=== PATIENT | male | born 1960 | race Two or more races ===

== ENCOUNTER 2022-11-04 10:07 | Emergency (ER) | payer BC, OTHER ==
[~2022-11-04] VITALS: Ht 162.6 cm; Wt 95.5 kg
[2022-11-04 11:17] LABS: Basophils # (auto) 0 10 ^3/uL (0-0.2); Basophils % (auto) 0.7 % (0.0-2.0); Eosinophils # (auto) 0.2 10 ^3/uL (0-0.8); Eosinophils % (auto) 2.8 % (0.0-7.0); Hematocrit 42.5 % (41.0-53.0); Hemoglobin 14.1 g/dL (13.5-17.5); Lymphocytes # (auto) 0.8 10 ^3/uL (0.4-5.4); Lymphocytes % (auto) 13.9 % (10.0-50.0); Mean Corpuscular Hemoglobin 28.8 pg (28.0-32.0); Mean Corpuscular Hgb Conc. 33.2 g/dL (32.0-36.0); Mean Corpuscular Volume 86.5 fL (80.0-100.0); Monocytes # (auto) 0.5 10 ^3/uL (0-1.3); Monocytes % (auto) 7.7 % (0.0-12.0); Neutrophils # (auto) 4.6 10 ^3/uL (1.6-8.6); Neutrophils % (auto) 74.9 % (37.0-80.0); Red Blood Cells 4.91 10^6/uL (4.5-5.90); Red Cell Distribution Width 14.4 % (11.8-14.3); White Blood Cell 6.1 10^3/uL (4.4-10.8)
[2022-11-04] MEDS ORDERED: KETOROLAC TROMETH 60MG/2ML VIAL IM ONE (13:45)
[2022-11-04] MEDS ORDERED: HYDROcodone-ACET 7.5/325MG TAB PO ONE (13:45)
[2022-11-04] MEDS ORDERED: DexAMETHasone SOD PHOS 10MG/1ML VIAL INJ IM ONE (13:45)
[2022-11-04] MEDS ORDERED: HYDR-4902 PO (13:47)
[2022-11-04] MEDS ORDERED: INDO50CA82 PO (13:47)
[2022-11-04 14:33] VITALS: BP 119/71; PULSE 70; RESP 16; TEMP 97.8; O2SAT 99
== END 2022-11-04 14:45 | disposition home or self-care (01) ==
LOC: ER 10:07
DX: M10.072 Idiopathic gout, left ankle and foot (principal); E11.9 Type 2 diabetes mellitus without complications; I10 Essential (primary) hypertension; E78.5 Hyperlipidemia, unspecified
CPT/HCPCS: 36415; 73630; 84550; 85025; 96372; 99284; J1100; J1885